=== PATIENT | male | born 1965 | race Caucasian/White ===

== ENCOUNTER 2023-02-22 16:00 | Inpatient (IN) ==
[2023-02-22] MEDS ORDERED: Flumazenil 0.5 mg/5 ml 0.1 MG/ML 5 ml VIAL IV PRN (16:19)
[2023-02-22] MEDS ORDERED: fentaNYL 100 mcg/2 ml 50 MCG/ML VIAL IV SLOW PU ONE (16:19)
[2023-02-22] MEDS ORDERED: Naloxone 0.4 mg VIAL 0.4 mg/ml 1 ml VIAL IV PUSH PRN (16:19)
[2023-02-22] MEDS ORDERED: Midazolam 10 mg/10 ml VIAL 1 mg/ml 10 ml VIAL (10 mg) IV SLOW PU ONE (16:19)
[2023-02-22] MEDS ORDERED: Midazolam 5 mg/5 ml VIAL 1 mg/ml 5 ml VIAL (5 mg) ONE (16:25)
[2023-02-22] MEDS ORDERED: fentaNYL 100 mcg/2 ml 50 MCG/ML VIAL ONE (16:26)
[2023-02-22] MEDS ORDERED: Heparin 2 UNITS/ML 1000 mls 2,000 ML IV ONE (16:26)
[2023-02-22] MEDS ORDERED: niCARdipine 0.1MG/ML IVPREMIX 20 MG/200 ML BAG IV ONE (16:26)
[2023-02-22] MEDS ORDERED: Iohexol 350 (CONTRAST) 200 ML MDV IV ONE ×2 (16:26→17:17)
[2023-02-22] MEDS ORDERED: Heparin 1,000 UNIT/ML 10 ml (10,000 UNITS) CATHLAB/DIALYSIS ONE (16:26)
[2023-02-22] MEDS ORDERED: nitroGLYCERIN DRIP 25,000 MCG/250 ML BTL ONE (16:26)
[2023-02-22] MEDS ORDERED: Lidocaine 1% MPF 5 ML VIAL ONE (16:26)
[2023-02-22] MEDS ORDERED: NS 0.9% 1000 ml BAG 1,000 ML IV SCH ×2 (16:30→18:00)
[2023-02-22 16:36] LABS: ABS Basophils 0.1 10^3/uL (0.0-0.1); ABS Eosinophils 0.1 10^3/uL (0.0-0.5); ABS Lymphocytes 1.5 10^3/uL (1.0-4.8); ABS Monocytes 0.7 10^3/uL (0.0-1.1); ABS Neutrophils 4.1 10^3/uL (1.5-7.6); ABS Nucleated RBC 0.02 10^3/ul; Eosinophil % 2.1 %; Hematocrit 43.6 % (38-53); Hemoglobin 15.6 g/dL (13.2-16.3); Lymphocyte % 23.3 %; Mean Corpuscular Hgb Conc 35.7 g/dL (31-36); Mean Corpuscular Volume 86.8 fL (80-97); Mean Platelet Volume 7.9 fL (7.5-11.2); Nucleated Red Blood Cells % 0.3 /100 WBC (0.0-0.4); Platelet Count 240 10^3/uL (150-450); Red Blood Count 5.02 10^6/uL (4.06-5.63); Red Cell Distribution Width 13.4 % (12-17); White Blood Count 6.5 10^3/uL (3.6-10.2)
[2023-02-22] MEDS ORDERED: Heparin 2 UNITS/ML 1000 mls 1,000 ML IV ONE (16:45)
[2023-02-22 16:47] LABS: Calcium 9.2 mg/dL (8.6-10.3); Potassium 3.4 mmol/L (3.5-5.0)
[2023-02-22 16:52] LABS: Creatinine, Serum 1.28 mg/dL (0.67-1.17); eGFR CKD-EPI 64.9 (>60)
[2023-02-22] MEDS ORDERED: Iohexol 350 (CONTRAST) 100 ML PAK IV ONE (17:17)
[2023-02-22 17:53] LABS: High Sensitivity Troponin 1 Hr 4 pg/mL (<20)
[2023-02-22 22:41] VITALS: BP 151/81
== END 2023-02-22 21:55 | disposition home or self-care (01) | DRG 191 ==
LOC: EDSTATUS 16:00 → ICU 16:46
PROVIDERS: ADMIT Internal Medicine; ATTEND Internal Medicine